=== PATIENT | female | born 1960 | race Caucasian/White ===

== ENCOUNTER 2021-03-18 01:05 | Day surgery (SDC) | payer SELFPAY ==
[2021-03-13 14:36] VITALS: BMI 26.5
--- NOTE | 2021-03-13 14:47 | PC.NURSE ---
Report to the Outpatient Waiting Room, entrance under the green pavilion located off [facility], at time 1100 on date 03/18/21. OR Time: 1300. - You will be asked a series of questions to screen for COVID 19 for your protection. - A mask is required within the hospital. - No visitors are allowed at this time. Preoperative COVID Testing Requirements: + 02/26/21 No COVID Test needed if: (proof is required; if not received patient will have Rapid Test prior to entry) - Patient has received COVID Vaccine at least 14 days prior to procedure date or - Patient has positive COVID test result within last 90 days of surgery date. COVID Test needed if above criteria is not met If not COVID vaccinated a COVID test must be conducted within 72 hours of surgery and patient is asked to isolate self from time of testing until procedure. You will go to the [facility] for your COVID testing. The [facility] is located at the corner of [address] [facility]. You will only be called if COVID results are positive and your surgeon may reschedule your elective surgery date. Patients may have clear liquids (water, carbonated beverages, clear teas, apple juice) until 3 hours prior to surgery with a maximum of 20 ounces. - No food from midnight until time of surgery Take the following medications with a SIP of water the morning of surgery: ESTRADIOL Medications to discontinue per physician: VITAMINS/SUPPLEMENTS Date to take last dose: 03/14/21 Please no make-up, nail turkish, hairspray, perfume, deodorant, or body powder the day of surgery. No jewelry (including any body piercings) or valuables the day of surgery, leave them at home. Please take a shower or bath the night before, or the morning of, surgery with an antibacterial soap. Wear comfortable, loose fitting clothing. - Jewelry must be removed prior to entering the operating room. Rings and piercings that are not removed may be cut off. - The hospital will not accept responsibility for valuables. - Please leave all valuables, including medications, at home the day of surgery. If you are going home after surgery, a licensed driver license examiner must drive you home. - NO public transportation without another adult. - We recommend that an adult stay with you for 24 hours following discharge. - We also recommend that you do not drive, make important decision, drink alcoholic beverages, or take any drugs that were not prescribed by your health care provider for at least 24 hours after your discharge time. Follow any additional instructions given to you from your surgeon. Telephone instructions given to JOHN KEYANNA and asked if any additional questions and then verbalized understanding. Patient advised to call surgeon office or pre surgery nurse liaison [phone] if any additional questions.
--- NOTE | 2021-03-16 16:36 | P.PNAN_ITS ---
Anes - Initial Pre Proc Eval Procedure: Operation Date: 03/18/21 13:00 Proposed Procedures p Right Elbow Lateral Epicondyle Debridement - Fredi Landry MD Date/Time: 03/16/21 16:36 Surgeon: Fredi Landry MD Pre Op Diagnosis: right lateral epicondylitis Patient Data Age: 60 Gender: F Height: 1.66 m Weight: 73.48 kg Allergies Allergy/AdvReac Type Severity Reaction Status Date / Time codeine AdvReac Mild depression Verified 03/18/21 11:09 Home Medications Medication Instructions Recorded Confirmed Type estradiol 1 mg tablet 1 mg PO DAILY 02/01/20 03/18/21 History ibuprofen 200 mg capsule 200 mg PO Q6H PRN 02/01/20 03/18/21 History cholecalciferol (vitamin D3) 125 mcg PO DAILY 03/13/21 03/18/21 History [Vitamin D3] multivitamin 1 tablet PO DAILY 03/13/21 03/18/21 History Patient hx anesthesia problems: none Family hx anesthesia problems: none Results Review: All pre-operative results and documents have been reviewed as part of the pre-operative evaluation. [facility] Past Medical History Medical History BMI 26.0-26.9,adult Right lateral epicondylitis Surgical History Surgical History H/O: hysterectomy Family History Family History Other Cerebrovascular accident Diabetes mellitus Heart disease Hypertension Social History Social History Smoking status: Never smoker Alcohol intake: never Substance use: never Substance use type: does not use Living arrangements: with family Additional occupation/education comments: [employer], [employer] Gender identity (if verbalized by the patient): Female Spiritual care concerns: No Anes - Eval Final PreProcedure Day of Procedure 03/16/21 16:36 Patient weight: overweight Heart: regular rate and rhythm Lungs: clear to auscultation and normal air movement Airway: Mallampati scale class II Neurological: alert and oriented Last oral intake: >/= 8 hours ASA classification: II Emergent: no Anesthetic plan: proceed Anesthesia type and monitoring: general LMA Results Review: All pre-operative results and documents have been reviewed as part of the pre-operative evaluation. Informed Consent: The patient's anesthetic plan and its attendant risks and benefits were discussed with the patient/family/POA. Questions were solicited and answers provided to the satisfaction of the patient/family/POA.
--- NOTE | 2021-03-16 16:36 | WPDANESPNB ---
Anes - Peripheral Nerve Block Date/Time: 03/16/21 16:36 I have discussed with the patient/family/POA the placement of a peripheral nerve block for post-operative pain management, including associated risks, benefits, complications, and side effects. Alternative methods of post-operative analgesia were detailed. Questions were solicited and answers provided to the satisfaction of the patient/family/POA. Time-Out: A pre-procedural Time-Out was completed immediately before starting the procedure and confirmed: Patient Identification, Site, Procedure, Patient Position and the Availability of Requisite Equipment. Clinical Indications: Acute post-operative pain management requested by the operative surgeon. Nerve Block Insertion Note Anes-nerve block: supraclavicular right Patient position: supine Skin prep: chlorhexidine Needle: 22 gauge, stimulating, insulated echogenic needle. Needle length: 80 mm Technique: ultrasound (in plane) Injectate: bupivacaine 0.5% with epi 5 mcg/ml (20cc) Observations: tolerated well Complications: none Procedure start time:: 1245 Procedure end time:: 1250
[2021-03-18] VITALS (8 sets, daily range): BP systolic 108–126; BP diastolic 50–64; PULSE 62–76; RESP 10–16; TEMP 36.1–36.8; O2SAT 93–100
[2021-03-18] MEDS: LACTATED RINGERS 1,000 ML 30 ML IV CONT (11:30)
[2021-03-18] MEDS: ACETAMINOPHEN 500 MG TABLET 1000 MG PO (11:30)
--- NOTE | 2021-03-18 12:17 | WPDHPUPDATE1 ---
History and Physical Update Update Date/Time: 03/18/21 12:17 History and Physical has been reviewed, including an updated exam of the patient. There are NO changes in the patient's condition. Risks, benefits, and alternatives have been discussed and questions answered. Patient agrees to proceed with procedure.
[2021-03-18] MEDS: KETOROLAC 15 MG/ML VIAL (*BKC) IV PUSH (12:35)
--- NOTE | 2021-03-18 13:52 | W.PM.PROC2 ---
Procedure Note - Detailed Date of Procedure 03/18/21 Pre-op Diagnosis right lateral epicondylitis Post-op Diagnosis same Procedure Performed Debridement right elbow common extensor origin at the lateral epicondyle Surgeon Fredi Landry MD Anesthesia general and regional Description of Procedure the patient was identified and proper site identified. In the preoperative holding area, the anesthesia team performed a right upper extremity block. She was then taken back to the operating room and transferred to the OR table placing her supine taking care to pad her torso and extremities. After general anesthetic induction and intubation, right upper extremity had a nonsterile tourniquet placed on the arm. The arm was then prepped and draped in the usual sterile fashion. Extremity was exsanguinated and the tourniquet was inflated to 200 millimeters of mercury remaining up for approximately 20 minutes. Longitudinal incision was made along the common extensor origin. Subcutaneous tissue is bluntly dissected down to the tendinous origin. There was a very large lateral epicondylar spur. Tendon was released from the spur and then divided longitudinally in line with the fibers of the tendon allowing for for debridement of the degenerative material from within. Prominent portion of the lateral condyle was also removed with a rongeur. The wound was irrigated with sterile saline solution. Tendon edges were reapproximated with 4-0 Monocryl. Skin edges reapproximated with three 0 V lock and tissue adhesive. Sterile dressing was applied. Tourniquet was released. Patient was awakened, extubated and taken to recovery area in stable condition. There were no known intraoperative complications. Estimated blood loss was negligible. She received perioperative antibiotics. Estimated Blood Loss 1 Tourniquet Time 20 Drains No Packing No Pathology none sent Complications No immediate complications Condition stable Disposition PACU
== END 2021-03-18 15:40 | disposition home or self-care (01) ==
PROVIDERS: PCP Internal Medicine Endocrinology, Diabetes & Metabolism; Visit Provider Orthopaedic Surgery
PROC: (CPT 24110; principal; 2021-03-18 13:00)
DX: M77.11 Lateral epicondylitis, right elbow (principal); G89.18 Other acute postprocedural pain
CPT/HCPCS: 24359; 64415; A9270; J1100; J1885; J2250; J2405; J2704; J3010; J7120

== ENCOUNTER → 2022-05-09 13:17 | Outpatient (CLI) | payer SELFPAY ==
--- NOTE | ~2022-05-09 | CT_ITS ---
EXAMINATION: CT pelvis wo con DATE: 05/09/2022 13:29 INDICATION: Sacroiliac pain TECHNIQUE: Computed tomography (CT) of the pelvis was performed without intravenous contrast. Automat ed exposure control and iterative reconstruction technique were employed. Exam dose: 569.81 mGy-cm t otal exam DLP. COMPARISON: None FINDINGS: There is a transitional first sacral vertebra. Prominent degenerative change at L5-S1 pars interarticularis defects. 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 No sacral fracture or bone destruction. No erosive change or ankylosis at the sacroiliac joints. Osteitis pubis. No pelvic fracture or bone destruction. IMPRESSION: Mild degenerative change of the sacroiliac joints. Transitional S1 Reviewed, dictated and finalized at [facility]. Reviewed, dictated and finalized at [facility].
== END ==
PROVIDERS: PCP Orthopaedic Surgery; Visit Provider Orthopaedic Surgery
DX: M24.9 Joint derangement, unspecified (principal); M53.3 Sacrococcygeal disorders, not elsewhere classified
CPT/HCPCS: 72192

== ENCOUNTER → 2022-05-28 14:13 | Outpatient (CLI) | payer SELFPAY ==
--- NOTE | ~2022-05-28 | MR_ITS ---
MRI of the lumbar spine Clinical History: Lumbar spondylosis Technique: Axial T2-weighted images, and sagittal T1-weighted, T2-weighted, and T2 fat-sat images wer e acquired. COMPARISON: 12/21/2017 Findings: There is no fracture of the lumbar spine. Minimal grade 1 retrolisthesis of L2 over L3 note d. No suspicious bone marrow signal abnormality seen. At L1-L2, there is no disc bulge or herniation. No spinal canal stenosis or neural foraminal narrowin g. At L2-L3, there is minimal disc bulge with mild facet joint hypertrophy. No spinal canal stenosis or neural foraminal narrowing. At L3-L4, there is minimal disc bulge. No spinal canal stenosis. There is minimal left neural foramin al narrowing. There is mild facet joint arthropathy. At L4-L5, there is minimal disc bulge with facet arthropathy. There is mild lateral recess stenosis, particularly on the left. There is mild right neural foraminal narrowing. At L5-S1, there is minimal disc bulge with advanced facet arthropathy. No spinal canal stenosis. Ther e is minimal bilateral neural foraminal narrowing. Paravertebral soft tissues are unremarkable. Impression: Minimal degenerative spondylosis, as above. Minimal grade 1 retrolisthesis of L2 over L3. Reviewed, dictated and finalized at location . Impression: Minimal degenerative spondylosis, as above. Minimal grade 1 retrolisthesis of L2 over L3.
== END ==
PROVIDERS: PCP Internal Medicine Endocrinology, Diabetes & Metabolism; Visit Provider Anesthesiology Pain Medicine
DX: M47.816 Spondylosis without myelopathy or radiculopathy, lumbar region (principal)
CPT/HCPCS: 72148

== ENCOUNTER 2023-12-23 09:17 | Outpatient (CLI) | payer SELFPAY ==
--- NOTE | ~2023-12-23 | MR_ITS ---
MRI of the lumbar spine Clinical History: Back pain Technique: Axial T2-weighted images, and sagittal T1-weighted, T2-weighted, and and T2 fat-sat images were acquired. COMPARISON: 05/28/2022 Findings: No acute fracture or sublocation seen. Osseous alignment unchanged from prior exam. No susp icious bone marrow signal abnormality seen. At L1-L2, there is minimal disc bulge with mild to moderate facet arthropathy. No central canal steno sis or neural foraminal narrowing. At L2-L3, there is minimal disc bulge with moderate facet arthropathy. No central canal stenosis. The re is mild bilateral neural foraminal narrowing. L3-L4, there is mild disc bulge with moderate facet arthropathy. No central canal stenosis. There is moderate bilateral neural foraminal narrowing. At L4-L5, there is minimal disc bulge with severe facet arthropathy. No central canal stenosis. There is mild to moderate right neural foraminal narrowing. Left neural foramen preserved. At L5-S1, there is no disc bulge or herniation. There is no spinal canal stenosis or neural foraminal narrowing. Paravertebral soft tissues are unremarkable. Impression: Mild to moderate degenerative spondylosis, as above. Reviewed, dictated and finalized at [facility]. [employer]GE ENGINEER Impression: Mild to moderate degenerative spondylosis, as above.
== END 2023-12-23 09:18 | disposition home or self-care (01) ==
LOC: GOSHIMG 09:18
PROVIDERS: PCP Internal Medicine Endocrinology, Diabetes & Metabolism; Visit Provider Nurse Practitioner
DX: M79.652 Pain in left thigh (principal); M47.896 Other spondylosis, lumbar region
CPT/HCPCS: 72148

== ENCOUNTER 2025-01-08 05:45 | Emergency (ER) | payer MEDICARE, SELFPAY ==
--- OUTSIDE RECORDS SUMMARY | 2025-01-08 05:48 | XMS_ITS | Clinical Summary ---
Author Organization [facility] Address [facility] [place] [address] Care Team Providers Care Vice President Of Development Name Role Phone Brent Davis MD Primary Care Provider + Allergies Active Allergy Reactions Criticality Noted Date Comments Codeine Mental status changes Low 04/02/2021 Tizanidine Shortness of breath High 12/19/2024 Medications multivitamin tabletIndication s:Vitamin Deficiency Prevention Take 1 tablet by mouth Active biotin 1 mg capsule Take by mouth Active calcium carbonate-vitami n D3 2,500 mg (1,000 mg elemental)-800 unit tablet Take by mouth Active estradioL (ESTRACE) 1 mg tablet daily 02/01/2020 Active ibuprofen 200 mg tab/cap 1 tablet/caps ule (200 mg total) 02/01/2020 Active Active Problems Problem Noted Date Diagnosed Date Sciatica of left side 12/19/2024 Positive colorectal cancer screening using Colog uard test 10/18/2024 Family history of high cholesterol 09/28/2024 Encounter for Medicare annual wellness exam 08/17 Encounters Date Type Department Care Team Description 12/21/2024 7:15 AM MEDICAL APPARATUS MODEL MAKER - 12/21/2024 11:59 PM MEDICAL APPARATUS MODEL MAKER Hospital Encounter [facility] MOB 1 DIAG IMG [address] [place] [address] Sciatica of left side Discharge Disposition: Discharge to home or self care 12/21/2024 Results Follow-Up [facility] [address] [place] [phone] Brent Davis MD XR Spine Lumbar Complete 4 Or More 12/19/2024 12:00 PM MEDICAL APPARATUS MODEL MAKER Office Visit [facility] [address] [place] [phone] Brent Davis MD Sciatica of left side (Primary Dx) 12/06/2024 Telephone [facility] [address] [place] [phone] Brent Davis MD Test Results 11/08/2024 11:25 AM CDT Anesthesia Event [address] [address] Shad Bailey MD Zueck, Jason M., IRENE 11/08/2024 11:15 AM CDT - 11/08/2024 12:00 PM CDT Surgery [address] [address] Kenneth Mann MD PhD COLON REMOVAL SNARE 11/08/2024 10:10 AM CDT - 11/08/2024 12:32 PM CDT Hospital Encounter [address] [address] Kenneth Mann MD PhD Positive colorectal cancer screening using Cologuard test Discharge Disposition: Discharge to home or self care 11/03/2024 Telephone [facility] [address] [place] [phone] Hallie Salomon, LATA GI PROCEDURE 3 DAY PRE CALL 11/01/2024 Telephone [facility] [address] [place] [phone] Hallie Salomon, LATA GI PROCEDURE 7 DAY PRE CALL 10/19/2024 Telephone [facility] [address] [place] [phone] Cheyenne Dickerson RN GI Preprocedure 10/18/2024 Telephone [facility] [address] [place] [phone] Brent Davis MD Test Results 10/14/2024 Orders Only [facility] [address] [place] [phone] Brent Davis MD from Last 3 Months Immunizations Immunization Administration Dates Next Due Influenza, Quadrivalent, Rec ombinant, Egg Free, Preservative Free, Intramuscular 01/20/2018 Tdap 02/19/2017 Surgical History Surgery Date Site/Laterality Comments MA SLING OPERATION STRESS INCONTINENCE Vaginal Sling Operation For Stress Incontinence - TOT placed on 03/20/2008 (Added by TW Conv) MA TOTAL ABDOMINAL HYSTERECT W/WO RMVL TUBE OVARY Hysterectomy - (Added by TW Conv) HYSTERECTOMY BREAST BIOPSY 03/08/2024 Left Medical History Medical History Date Comments Lyme disease Lyme disease - ( Added by TW Conv) Personal history of other di seases of the digestive system History of constipation - (A dded by TW Conv) Personal history of other di seases of the digestive system History of irritable bowel s yndrome - (Added by TW Conv) Social History Tobacco Use Types Packs/Day Years Used Date Smoking Tobacco: Never Tobacco Cessation:Counseling Given: Not Answered Alcohol Use Standard Drinks/Week Comments Never 0 (1 standard drink = 0.6 oz pur e alcohol) PHQ-2 Answer Date Recorded PHQ-2 Total Score (If total score is 3 or more points, staff should administer the PHQ-9) 0 09/28/2024 AUDIT-C Answer Date Recorded Q1: How often do you have a drink containing alcohol? Never 11/08/2024 Q2: How many drinks containi ng alcohol do you have on a typical day when you are drinking? Patient does not drink Q3: How often do you have si x or more drinks on one occasion? Never 11/08/2024 Personal Safety Answer Date Recorded Have you ever been in or are you currently in a harmful physical or emotional relationship or is someone making you feel afraid or unsafe? Denies 11/08/2024 Comments No Sex and Gender Information Value Date Recorded Sex Assigned at Not on file Legal Sex Female 12:37 AM MEDICAL APPARATUS MODEL MAKER Gender Identity Not on file Sexual Orientation Not on file Obstetrics History Para Term AB IAB SAB Ectopic Multiple Livin g Live Births 3 2 2 Date Outcome GA Total Labor Labor/2nd/3rd Weight Sex Type Anes PTL Elizabeth A1 A5 Name Clin Term Term Last Filed Vital Signs Vital Sign Reading Time Taken Comments Blood Pressure 166/80 12/19/2024 11:54 AM MEDICAL APPARATUS MODEL MAKER Pulse 65 12/19/2024 11:54 AM MEDICAL APPARATUS MODEL MAKER Temperature 36 C (96.8 F) 11/08/2024 12:02 PM CDT Respiratory Rate 12 11/08/2024 12:22 PM CDT Oxygen Saturation 98% 12/19/2024 11:54 AM MEDICAL APPARATUS MODEL MAKER Inhaled Oxygen Concentration - - Weight 81.2 kg (179 lb) 12/19/2024 11:54 AM MEDICAL APPARATUS MODEL MAKER Height 165.1 cm (5' 5) 12/19/2024 11:54 AM MEDICAL APPARATUS MODEL MAKER Body Mass Index 29.79 12/19/2024 11:54 AM MEDICAL APPARATUS MODEL MAKER Plan of Treatment Health Maintenance Due Date Last Done Comments Hepatitis C Screening 1960 Hepatitis B Screening 04/27/1977 Pneumococcal vaccine 65+ (1 of 1 - PCV) 04/27/2009 Zoster Vaccine (1 of 2) 04/27/2009 Influenza Vaccine (#1) 2024 01/20/2018 Breast Cancer Screening-Mammogram 01/05/2025 024 Depression Screening 09/28/2025 09/28/2024, 09/25/2022, 09/25/2022 Fall Risk Assessment 09/28/2025 09/28/2024 Well Visit 65+ 09/28/2025 09/28/2024, 09/16, 09/25/2022, Additional history exists Osteoporosis Screening-Bone Density Scan 01/05/2026 01/06/2024, 09/13/2019 DTaP/Tdap/Td Vaccine (2 - Td or Tdap) 02/19/2027 02/19/2017 Colon Cancer Screening-Colonoscopy 11/08/2034 11/08/2024 Colon Cancer Screening-CT Colonography Discontinued 11/08/2024 Colon Cancer Screening-DNA Stool Discontinued 11/09/19 25 Colon Cancer Screening-FIT Discontinued 11/08/2024 Colon Cancer Screening-Sigmoidoscopy Discontinued 11/08/2024 Medical Devices Implanted Type Area Internet Merchant Device Identifier Shelf Expiration Date Model / Serial / Lot [employer] Partnership Marker [employer]osp[employer] Site Top Hat Shape [employer]omark [id number] - [id number] Implanted:Qty: 1 on 03/08/2024 by Brent Maher MD at [facility] Left: Breast [employer] [id number] 08/18/2024 SMARK-PASCUAL ERO-[id number] / / [id number] Procedures Procedure Name Priority Date/Time Associated Diagnosis Comments XR SPINE LUMBAR COMPLETE 4 OR MORE VIEWS Schedule Routine, Read Routine (OP Routine) 12/21/2024 7:30 AM MEDICAL APPARATUS MODEL MAKER Sciatica of left side SURGICAL PATHOLOGY Routine 11/08/2024 11 :40 AM CDT Positive colorectal cancer screening using Cologuard test COLONOSCOPY 11/08/2024 11:26 AM CDT COLON REMOVAL SNARE Open Access 11/08/2024 1 1:24 AM CDT Positive colorectal cancer screening using Cologuard test GI - RESULT 10/14/2024 6:11 AM CDT SCREENING MAMMOGRAM BILATERAL W TUNDE Schedule Routine, Read Routine (OP Routine) 01/06/2024 8:56 AM MEDICAL APPARATUS MODEL MAKER Screening mammogram, encounter for DEXA AXIAL SKELETON BONE DENSITY 1 OR MORE SITES Schedule Routine, Read Routine (OP Routine) 01/06/2024 8:48 AM MEDICAL APPARATUS MODEL MAKER Post-menopausal from Last 3 Months or Most Recently Relevant to Health Maintenance Results * XR Spine Lumbar Complete 4 Or More (12/21/2024 7:30 AM MEDICAL APPARATUS MODEL MAKER) Anatomical Region Laterality Modality Spine N/A Computed Radiogr aphy 12/21/2024 8:03 AM MEDICAL APPARATUS MODEL MAKER Impressions 12/21/2024 8:03 AM MEDICAL APPARATUS MODEL MAKER 1. Moderate multilevel degenerative disc disease. 2. Minimal anterolisthesis of L4 on L5. Electronically signed by: Norbert Salinas M.D. Narrative 12/21/2024 8:03 AM MEDICAL APPARATUS MODEL MAKER EXAMINATION: XR SPINE LUMBAR 4 OR MORE VIEWS HISTORY: sciatica TECHNIQUE: 5 views of the lumbar spine. COMPARISON: 01/17/2014 FINDINGS: Minimal anterolisthesis of L4 on L5. There is facet arthrosis of the lumbar spine. The vertebral body heights are maintained. There is moderate multilevel disc height loss. Procedure Note Norbert Salinas MD - 12/21/2024 EXAMINATION: XR SPINE LUMBAR 4 OR MORE VIEWS HISTORY: sciatica TECHNIQUE: 5 views of the lumbar spine. COMPARISON: 01/17/2014 FINDINGS: Minimal anterolisthesis of L4 on L5. There is facet arthrosis of the lumbar spine. The vertebral body heights are maintained. There is moderate multilevel disc height loss. IMPRESSION: 1. Moderate multilevel degenerative disc disease. 2. Minimal anterolisthesis of L4 on L5. Electronically signed by: Norbert Salinas M.D. Brent Davis MD IMG XR PROCEDURES Final Result * Surgical pathology (11/08/2024 11:40 AM CDT) Tissue (Polyp(s), colon/colorectal, esophageal, gastric) 11/08/2024 11:41 AM CDT Tissue specimen (specimen) (Polyp(s), colon/colorectal, esophageal, gastric) 11/08/2024 11:49 AM CDT Narrative PATHOLOGY [facility] - 11/09/2024 10:46 AM CDT EPIC results best viewed via link to PDF [facility] [place] [address] Note to Patients: This report may contain a detailed description of human tissue sent by a health care provider to the laboratory for pathologic evaluation. The content of this report is essential for diagnosis and may provide important critical findings. This information may be unfamiliar to patients to review without a medical professional present. It is advised that the patient review this report in the presence of a health care provider who can answer questions and explain the details. SURGICAL PATHOLOGY REPORT FINAL Patient Name: ERIN MURRAY Gender: F : 1960 (Age: 64) Address: [address] [place] [phone] [facility] #: [id number] Taken:11/08/2024 Received:11/08/2024 Reported: 11/09/2024 Patient Type: [facility] Service: Gastro Location: Physician(s): Kenneth Mann M.D., Ph.D. Brent Davis M.D. Diagnosis: A. Large bowel, ascending colon polyp, biopsy - Sessile serrated adenoma/lesion(s) B. Large bowel, descending colon polyp, biopsy - Sessile serrated adenoma/lesion liyah/11/09/2024 08:46 By this signature, I attest that the above diagnosis is based upon my personal examination of the slides(and/or other material indicated in the diagnosis). Shanon Cordoba MD Report Electronically Reviewed and Signed Out By Shanon Cordoba MD 11/09/2024 10:46:27 Randa Noonan M.D. History: The patient is a 64-year-old woman presenting with positive colorectal cancer screening using Cologuard test. Operative procedure: Colon removal snare. Specimen(s) Received: A: Ascending B: Descending Gross Description: Received in two formalin jars labeled with the patient's identifiers. A. Labeled ascending and consists of multiple lawler fragment(s) of soft tissue with an aggregate measurement of 0.9 x 0.4 x 0.1 cm. Labeled A1. Jar 0. B. Labeled descending and consists of one lawler-pink fragment(s) of soft tissue measuring 0.8 cm in greatest dimension. Labeled B1. Jar 0. [facility]/11/08/2024 15:51 PA(s): Rica Cruz By this signature, I attest that the above diagnosis is based upon my personal examination of the slides(and/or other material). Addenda/Procedures The performance characteristics of some immunohistochemical stains, fluorescence in-situ hybridization tests and immunophenotyping by flow cytometry cited in this report (if any) were determined by the Surgical Pathology and Flow Cytometry Departments at [facility] as part of an ongoing quality engineer medical device program and in compliance with federally mandated regulations drawn from the Clinical Laboratory Improvement Act of 1988 (CLIA '88). Some of these tests rely on the use of analyte specific reagents and are subject to specific labeling requirements by the US Food and Drug Administration. Such diagnostic tests may only be performed in a facility that is certified by the Department of Health and Human Services as a high complexity laboratory under CLIA '88. The FDA has determined that such clearance or approval is not necessary. This test is used for clinical purposes. It should not be regarded as investigational or for research. Nevertheless, federal rules concerning the medical use of analyte specific reagents require that the following disclaimer be attached to the report: This test was developed and its performance characteristics determined by the Surgical Pathology and Flow Cytometry Departments of [facility]. It has not been cleared or approved by the U. S. Food and Drug Administration. IMAGES AND SCANNED DOCUMENTS, IF INCLUDED, ONLY VIEWABLE IN PDF VERSION OF REPORT us Kenneth Mann MD PhD LAB PATHOLOGY ORDERABLES Final Result PATHOLOGY [facility] 3rd Floor [place], [place] [phone] * Colonoscopy (11/08/2024 11:26 AM CDT) Anatomical Region Laterality Modality Other Narrative Procedure Note Kenneth Mann MD PhD - 11/08/2024 11:26 AM CDT GI ENDOSCOPY [facility] Patient Name: Erin Murray Procedure Date: 11/08/2024 11:26 AM Date of : 1960 Admit Type: Outpatient Age: 64 Gender: Female Attending MD: Kenneth Mann M.D., Room: [facility] ENDOSCOPY ROOM 8 Note Status: Finalized Procedure: Colonoscopy Indications: Last colonoscopy 10 years ago, . +Cologuard test. Referring MD: Brent Davis M.D. Providers: Kenneth Mann M.D., Ozzy Massey M.D. Medicines: Monitored Anesthesia Care Complications: No immediate complications. Estimated Blood Loss: Estimated blood loss was minimal. Procedure: Pre-Anesthesia Assessment: - Immediately prior to administration ofmedications, the patient was re-assessed for adequacy to receive sedatives. - The risks and benefits of the procedure and the sedation options and risks were discussed with the patient. All questions were answered and informed consent was obtained. The benefits, risks and alternatives of theprocedure and sedation were discussed and informed consentwas obtained. All questions were answered. Please referto the signed informed consent document in the medical record. The scope was passed under direct vision.The PC HQ [id number] endoscope was introducedthrough the anus and advanced to the terminal ileum, with identification of the appendiceal orifice and IC valve. The colonoscopy was performed without difficulty. The patient tolerated the procedurewell. The quality of the bowel preparation was adequate.The bowel preparation used was GoLYTELY via split dose instruction. Findings: The perianal and digital rectal examinations were normal. A 5 mm polyp was found in the ascending colon. The polyp was sessile. The polyp was removed with a cold snare. Resection and retrieval were complete. Verification of patient identification for the specimen was done. A 6 mm polyp was found in the descending colon. The polyp wassessile. The polyp was removed with a cold snare. Resection and retrieval were complete. A few small-mouthed diverticula were found in the sigmoid colon. The retroflexed view of the distal rectum and anal verge was normaland showed no anal or rectal abnormalities. Impression: - One 5 mm polyp in the ascending colon, removedwith a cold snare. Resected and retrieved. - One 6 mm polyp in the descending colon, removedwith a cold snare. Resected and retrieved. - Diverticulosis in the sigmoid colon. - The distal rectum and anal verge are normal on retroflexion view. Recommendation: - Await pathology results. - Repeat colonoscopy in 5 years for surveillance. Attending Participation: I was present and participated during the entire procedure, including non-iglesias portions. Electronically signed by Kenneth Mann MD Kenneth Mann M.D. 11/08/2024 12:00:43 PM . Number of Addenda: 0 Note Initiated On: 11/08/2024 11:26 AM us Kenneth Mann MD PhD ENDOSCOPY PROCEDURES Final Resu lt * GI - RESULT (10/14/2024 6:11 AM CDT) Anatomical Region Laterality Modality Other us Brent Davis MD Final Re sult * (ABNORMAL) Screening Mammogram Bilateral W [place] (01/06/2024 8:56 AM MEDICAL APPARATUS MODEL MAKER) Anatomical Region Laterality Modality Breast Bilateral Mammography Impressions 01/13/2024 9:58 AM MEDICAL APPARATUS MODEL MAKER BI-RADS ATLAS category (overall): 0 - Incomplete: Needs Additional Imaging Evaluation 1. Indeterminate left breast mass(es). Further evaluation with diagnostic left mammography and possible diagnostic left breast ultrasound is recommended. 2. No mammographic evidence of malignancy in the right breast. Routine screening mammography of the right breast is recommended in 1 year. The patient has been or will be contacted. Narrative 01/13/2024 9:58 AM MEDICAL APPARATUS MODEL MAKER Screening Mammogram Bilateral W Tunde: 01/06/24 The study was acquired using full field digital technology and interpreted from soft copy. 2D digital mammographic views, as well as 3D digital tomosynthesis were performed in the CC and MLO projections. This study was resulted using Computer-Aided Detection (CAD). CLINICAL: Screening mammogram, encounter for. No relevant medical history has been documented for this patient. No known family history of breast cancer. COMPARISONS: 12/29/2017 Breast Imaging Screening Outside Reference BREAST TISSUE: There are scattered areas of fibroglandular density. FINDINGS: There is an indeterminate mass or adjacent masses in the left breast at 2-3 o'clock, [id number] depth. Other smaller less dense circumscribed masses in both breasts are considered to be benign. There is no suspicious finding in the right breast on mammogram. 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 REFERENCE: Bone mineral density: T-Score: Normal (T-score above or = -1.0) Low bone mass (T-score between -1.0 and -2.5) replaces the previously used term osteopenia Osteoporosis (T-score = or below -2.5) Z-Score: Within the expected range for age (Z-score above -2.0) Below the expected range for age (Z-score is -2.0 or below) Please see below follow up recommendations. Medical evaluation for secondary causes of low bone mineral density may be appropriate. FRAX is a World Health Organization validated fracture risk assessment tool that calculates a person's 10 year probability of a major osteoporosis related fracture and hip fracture. According to the National Osteoporosis Foundation guidelines, postmenopausal women and men age 50 or older with low bone mass and a 10 year probability of a major osteoporosis related fracture = or greater than 20% or a 10 year probability of a hip fracture = or greater than 3% should be considered for pharmacological treatment for the prevention of osteoporosis. For further information, including treatment recommendations, please refer to the 2019 ISCD Official Positions (http://www.iscd.org) and the NOF's Clinician's Guide to Prevention and Treatment of Osteoporosis (http://www.nof.org/professionals/clinical-guidelines) THIS IS AN ELECTRONICALLY VERIFIED FINAL REPORT 01/06/2024 6:08 PM - Electronically signed by Brent Coker M.D. 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 REFERENCE: Bone mineral density: T-Score: Normal (T-score above or = -1.0) Low bone mass (T-score between -1.0 and -2.5) replaces thepreviously used term osteopenia Osteoporosis (T-score = or below -2.5) Z-Score: Within the expected range for age (Z-score above -2.0) Below the expected range for age (Z-score is -2.0 or below) Please see below follow up recommendations. Medical evaluation forsecondary causes of low bone mineral density may be appropriate. FRAX is a World Health Organization validated fracture risk assessmenttool that calculates a person's 10 year probability of a major osteoporosisrelated fracture and hip fracture. According to the National OsteoporosisFoundation guidelines, postmenopausal women and men age 50 or older with low bonemass and a 10 year probability of a major osteoporosis related fracture = or greater than 20% or a 10 year probability of a hip fracture = or greaterthan 3% should be considered for pharmacological treatment for the preventionof osteoporosis. For further information, including treatment recommendations, please referto the 2019 ISCD Official Positions (http://www.iscd.org) and the NOF's Clinician's Guide to Prevention and Treatment of Osteoporosis (http://www.nof.org/professionals/clinical-guidelines) THIS IS AN ELECTRONICALLY VERIFIED FINAL REPORT 01/06/2024 6:08 PM - Electronically signed by Brent Coker M.D. MF: GINA Report ID: [id number] Reading Location: [place] [address] Brent Davis MD IM DXA PROCEDURES Final Result from Last 3 Months or Most Recently Relevant to Health Maintenance Insurance MEDICARE MEDICARE MEDICARE Care Teams Vice President Of Development Relationship Specialty Start Date End Date Brent Davis MD PCP - General 04/22/17
--- OUTSIDE RECORDS SUMMARY | 2025-01-08 05:48 | XMS_ITS | Encounter Summary ---
Author Organization [facility] Address [address] [place] [address] Care Team Providers Care School Bus Aide Name Role Phone Brent Davis MD Primary Care Provider + Encounter Details Date Type Department Care Team (Late st Contact Info) Description 12/21/2024 Results Follow-Up [facility] [address] [place] [phone] Brent Davis MD [facility] [address] [address] XR Spine Lumbar Complete 4 Or More Social History Tobacco Use Types Packs/Day Years Used Date Smoking Tobacco: Never Alcohol Use Standard Drinks/Week Comments Never 0 [...] on file Legal Sex Female 12:37 AM HOSE TENDER Gender Identity Not on file Sexual Orientation Not on file documented as of this encounter Plan of Treatment Not on file documented as of this encounter Visit Diagnoses Not on filedocumented in this encounter Care Teams School Bus Aide Relationship Specialty Start Date End Date Brent Davis MD PCP - General 04/22/17 documented as of this encounter
[2025-01-08 05:53] VITALS: BP 161/78; PULSE 93; RESP 17; TEMP 36.3; O2SAT 96
--- NOTE | 2025-01-08 07:11 | ED.GENADULT ---
HPI - General Adult General Chief complaint: Back Pain/Injury Stated complaint: sciatica pain Time Seen by Provider: 01/08/25 06:54 History of Present Illness HPI narrative: 64-year-old female present to the emergency department for evaluation of left-sided sciatica. Patient reports pain started approximately 1 month ago and did acutely worsened on Thursday. Patient denies any falls or injuries. Patient denies any prior history of sciatica. Patient states that they shooting pain that radiates 10 fell left hip down to the level of the left calf. Patient does have some baseline neuropathy but denies any worsening any leg numbness or tingling. Patient denies any change in bowel or bladder habits. Patient denies any other significant past medical history. Related Data Home Medications ?Medication ?Instructions ?Recorded ?Confirmed ?Last Taken ?Type estradiol 1 mg tablet (Estrace) 1 mg PO DAILY 02/01/20 05/13/22 03/18/21 History cholecalciferol (vitamin D3) 125 125 mcg PO DAILY 03/13/21 05/13/22 03/14/21 History mcg (5,000 unit) tablet (Vitamin D3) multivitamin 1 tablet PO DAILY 03/13/21 05/13/22 03/14/21 History elderberry fruit 350 mg capsule mg PO 05/06/22 05/13/22 Unknown History Allergies Allergy/AdvReac Type Severity Reaction Status Date / Time codeine AdvReac Mild depression Verified 01/08/25 05:55 Review of Systems Review of Systems: All systems reviewed & are unremarkable except as noted in HPI and below PMFSH Past Medical History Medical History (Updated 01/08/25 @ 07:16 by Rob Garrett MD) Arthritis of lumbosacral spine Left lateral epicondylitis BMI 26.0-26.9,adult Surgical History Surgical History Right lateral epicondylitis Lateral epicondylar debridement March 18, 2021 H/O: hysterectomy Family History Family History Other Cerebrovascular accident Diabetes mellitus Heart disease Hypertension Social History Social History Smoking status: Never smoker Alcohol intake: never Substance use: never Substance use type: does not use Living arrangements: with family Occupation/Education: occupation Additional occupation/education comments: [employer] [facility] Gender identity (if verbalized by the patient): Female Spiritual care concerns: No Exam Narrative: APPEARANCE: Well appearing, no pain, no distress, well-nourished. HEAD: normocephalic, atraumatic. EYES: PERRLA/EOMI, conjunctivae clear. NOSE: Normal no drainage EARS:TMS clear with good light reflex. THROAT: Pharynx clear, no exudate. NECK: Supple. No adenopathy, no masses. RESPIRATORY: Airway patent, respirations nonlabored. Clear to auscultation bilaterally, no rales, rhonchi, wheezing. CARDIOVASCULAR: Regular rate and rhythm without murmurs rubs or gallops. ABDOMINAL: Soft, nontender, nondistended, normal bowel sounds MUSCULOSKELETAL: Moves all extremities. Strength/ROM intact, No edema, No calf tenderness. Tenderness to left buttock, a negative straight leg NEURO: Alert. Cranial nerves II through XII intact. Good gait. Good coordination SKIN: Warm, dry. Normal Color PSYCHIATRIC: Normal affect/mood. Course Vital Signs Vital signs: Vital Signs Temperature 97.4 F L 01/08/25 05:53 Pulse Rate 93 01/08/25 05:53 Respiratory Rate 17 01/08/25 05:53 Blood Pressure 161/78 H 01/08/25 05:53 Pulse Oximetry 96 01/08/25 05:53 Oxygen Delivery Room Air 01/08/25 05:53 Temperature 97.4 F L 01/08/25 05:53 Pulse Rate 60 01/08/25 07:30 Respiratory Rate 15 01/08/25 07:30 Blood Pressure 160/76 H 01/08/25 07:30 Pulse Oximetry 98 01/08/25 07:30 Oxygen Delivery Room Air 01/08/25 05:53 Medical Decision Making MDM Narrative Medical decision making narrative: 64-year-old female present to the emergency department for evaluation for left leg pain that she describes as a radicular pain that radiates down the left leg to the level of the calf. Patient denies any change in bowel or bladder habits. Patient will be treated as a sciatica. Patient was treated with IM Toradol, IM dexamethasone, p.o. Flexeril in p.o. Norflex. Patient will be discharged home with a Medrol Dosepak, p.o. Flexeril and p.o. Fargo. Patient was encouraged close follow-up with her primary care physician. All questions concerns were addressed patient was comfortable the plan was discharge and close follow-up Differential Diagnosis Differential Diagnosis: Hip strain, hip contusion, sciatica, back pain, cauda equina Vital Signs Vital Signs: Vital Signs Temperature 97.4 F L 01/08/25 05:53 Pulse Rate 93 01/08/25 05:53 Respiratory Rate 17 01/08/25 05:53 Blood Pressure 161/78 H 01/08/25 05:53 Pulse Oximetry 96 01/08/25 05:53 Oxygen Delivery Room Air 01/08/25 05:53 Temperature 97.4 F L 01/08/25 05:53 Pulse Rate 60 01/08/25 07:30 Respiratory Rate 15 01/08/25 07:30 Blood Pressure 160/76 H 01/08/25 07:30 Pulse Oximetry 98 01/08/25 07:30 Oxygen Delivery Room Air 01/08/25 05:53 Discharge Plan Discharge Clinical Impression: Sciatica Patient Disposition: Home Condition: Stable Instructions: Antibiotic Form, Sciatica (ED), Back Pain (ED) Additional Instructions: Med drug Dosepak as directed. Flexeril for muscle spasm. Fargo as needed for additional pain control. Zofran as needed for nausea. Have close follow-up with your primary care physician. If you have any worsening symptoms please call or return to the emergency department. Patient Language: Turkish Prescriptions: New cyclobenzaprine 10 mg tablet 10 mg PO BID PRN (Reason: muscle spasm) Qty: 14 0RF hydrocodone-acetaminophen 5-325 mg tablet 1 tablet PO Q12H PRN (Reason: pain) Qty: 14 0RF methylprednisolone [Medrol (Hadley)] 4 mg tablets,dose pack See Rx Instructions .ROUTE .COMPLEX Qty: 21 0RF Rx Instructions: for 6 days ondansetron 4 mg tablet,disintegrating 4 mg PO Q8H PRN (Reason: nausea and vomiting) Qty: 14 0RF No Action estradiol [Estrace] 1 mg tablet 1 mg PO DAILY Rx Instructions: off 1 week; repeat cycle celecoxib [Celebrex] 200 mg capsule 200 mg PO DAILY Qty: 30 1RF elderberry fruit 350 mg capsule PO multivitamin Tablet 1 tablet PO DAILY cholecalciferol (vitamin D3) [Vitamin D3] 125 mcg (5,000 unit) Tablet 125 mcg PO DAILY Follow-up/Referrals: Ryan,Brent Barger MD [Primary Care Provider, Unknown]
[2025-01-08] MEDS: CYCLOBENZAPRINE HCL 10 MG TABLET PO (07:25)
[2025-01-08] MEDS: KETOROLAC 30 MG/ML VIAL (*BKC) IM (07:25)
[2025-01-08] MEDS: HYDROcodone/acetaminophen (*CRX) 5-325 MG TABLET 1 TAB PO (07:25)
[2025-01-08] MEDS: dexAMETHasone SOD PHOS INJ 10 MG/ML 1 ML VIAL IM (07:26)
[2025-01-08 07:30] VITALS: BP 160/76; PULSE 60; RESP 15; O2SAT 98
--- OUTSIDE RECORDS SUMMARY | 2025-01-08 07:38 | XMS_ITS | Clinical Summary ---
Author Organization [facility] Address On license of [facility] [place] [address] Care Team Providers Care Mushroom Cutter Name Role Phone Brent Davis MD Primary [...] Department Care Team Description 12/21/2024 7:15 AM IMMUNOLOGIST - 12/21/2024 11:59 PM IMMUNOLOGIST Hospital Encounter [facility] MOB 1 DIAG IMG [address] [place] [address] Sciatica of left side Discharge Disposition: Discharge to home or self care 12/21/2024 Results Follow-Up [facility] [address] [place] [phone] Brent Davis MD XR Spine Lumbar Complete 4 Or More 12/19/2024 12:00 PM IMMUNOLOGIST Office Visit [facility] [address] [place] [phone] Brent Davis MD Sciatica of left side (Primary Dx) 12/06/2024 Telephone [facility] [address] [place] [phone] Brent Davis MD Test Results 11/08/2024 11:25 AM CDT Anesthesia Event [address] [address] Shad Bailey MD Zueck, Jason M., IRENE 11/08/2024 11:15 AM CDT - 11/08/2024 12:00 PM CDT Surgery [address] [address] Kenneth Mann MD PhD COLON REMOVAL SNARE 11/08/2024 10:10 AM CDT - 11/08/2024 12:32 PM CDT Hospital Encounter [address] [address] Kenneth Mann MD PhD Positive colorectal cancer screening using Cologuard test Discharge Disposition: Discharge to home or self care 11/03/2024 Telephone [facility] [address] [place] [phone] Hallie Salomon, LATA GI PROCEDURE 3 DAY PRE CALL 11/01/2024 Telephone [facility] [address] [place] [phone] Hallie Salomon, LATA GI PROCEDURE 7 DAY PRE CALL 10/19/2024 Telephone [facility] [address] [place] [phone] Cheyenne Dickerson RN GI Preprocedure 10/18/2024 Telephone [facility] [address] [place] [phone] Brent Davis MD Test Results 10/14/2024 Orders Only [facility] [address] [place] [phone] Brent Davis MD from Last 3 Months Immunizations Immunization Administration Dates Next Due Influenza, Quadrivalent, Rec ombinant, Egg Free, Preservative Free, Intramuscular 01/20/2018 Tdap 02/19/2017 Surgical History Surgery Date Site/Laterality Comments [place] SLING OPERATION STRESS INCONTINENCE Vaginal Sling Operation For Stress Incontinence - TOT placed on 03/20/2008 (Added by TW Conv) [place] TOTAL ABDOMINAL HYSTERECT W/WO RMVL TUBE OVARY [...] on file Legal Sex Female 12:37 AM IMMUNOLOGIST Gender Identity Not on file Sexual Orientation Not on file Obstetrics History Para Term AB IAB SAB Ectopic Multiple Livin g Live Births 3 2 2 Date Outcome GA Total Labor Labor/2nd/3rd Weight Sex Type Anes PTL Elizabeth A1 A5 Name Clin Term Term Last Filed Vital Signs Vital Sign Reading Time Taken Comments Blood Pressure 166/80 12/19/2024 11:54 AM IMMUNOLOGIST Pulse 65 12/19/2024 11:54 AM IMMUNOLOGIST Temperature 36 C (96.8 F) 11/08/2024 12:02 PM CDT Respiratory Rate 12 11/08/2024 12:22 PM CDT Oxygen Saturation 98% 12/19/2024 11:54 AM IMMUNOLOGIST Inhaled Oxygen Concentration - - Weight 81.2 kg (179 lb) 12/19/2024 11:54 AM IMMUNOLOGIST Height 165.1 cm (5' 5) 12/19/2024 11:54 AM IMMUNOLOGIST Body Mass Index 29.79 12/19/2024 11:54 AM IMMUNOLOGIST Plan of Treatment Health Maintenance Due Date [...] Discontinued 11/08/2024 Medical Devices Implanted Type Area Agents' Records Clerk Device Identifier Shelf Expiration Date Model / Serial / Lot [employer] Partnership Marker Biospy Site Top Hat Shape [employer] [id number] - [id number] Implanted:Qty: 1 on 03/08/2024 by Brent Maher MD at [facility] Left: Breast [employer] [id number] 08/18/2024 SMARK-PASCUAL ERO-[id number] / / [id number] Procedures Procedure Name Priority Date/Time Associated Diagnosis Comments XR SPINE LUMBAR COMPLETE 4 OR MORE VIEWS Schedule Routine, Read Routine (OP Routine) 12/21/2024 7:30 AM IMMUNOLOGIST Sciatica of left side SURGICAL PATHOLOGY Routine 11/08/2024 11 :40 AM CDT Positive colorectal cancer screening using Cologuard test COLONOSCOPY 11/08/2024 11:26 AM CDT COLON REMOVAL SNARE Open Access 11/08/2024 1 1:24 AM CDT Positive colorectal cancer screening using Cologuard test GI - RESULT 10/14/2024 6:11 AM CDT SCREENING MAMMOGRAM BILATERAL W TUNDE Schedule Routine, Read Routine (OP Routine) 01/06/2024 8:56 AM IMMUNOLOGIST Screening mammogram, encounter for DEXA AXIAL SKELETON BONE DENSITY 1 OR MORE SITES Schedule Routine, Read Routine (OP Routine) 01/06/2024 8:48 AM IMMUNOLOGIST Post-menopausal from Last 3 Months or Most Recently Relevant to Health Maintenance Results * XR Spine Lumbar Complete 4 Or More (12/21/2024 7:30 AM IMMUNOLOGIST) Anatomical Region Laterality Modality Spine N/A Computed Radiogr aphy 12/21/2024 8:03 AM IMMUNOLOGIST Impressions 12/21/2024 8:03 AM IMMUNOLOGIST 1. Moderate multilevel degenerative disc disease. 2. Minimal anterolisthesis of L4 on L5. Electronically signed by: Norbert Salinas M.D. Narrative 12/21/2024 8:03 AM IMMUNOLOGIST EXAMINATION: XR SPINE LUMBAR 4 OR MORE [...] gastric) 11/08/2024 11:49 AM CDT Narrative PATHOLOGY [facility] - 11/09/2024 10:46 AM CDT EPIC results best viewed via link to PDF [facility] [place] [address] Note to Patients: This report may contain [...] Gender: F : 1960 (Age: 64) Address: [address] [place] [phone] [facility] #: [id number] Taken:11/08/2024 Received:11/08/2024 Reported: 11/09/2024 Patient Type: [facility] Service: Gastro Location: Physician(s): Kenneth Mann M.D., [...] in greatest dimension. Labeled B1. Jar 0. [facility]/11/08/2024 15:51 PA(s): Rica Cruz By this signature, I attest that the above diagnosis is based upon my personal examination of the slides(and/or other material). Addenda/Procedures The performance characteristics of some immunohistochemical stains, fluorescence in-situ hybridization tests and immunophenotyping by flow cytometry cited in this report (if any) were determined by the Surgical Pathology and Flow Cytometry Departments at [facility] as part of an ongoing assistant quality manager program and in compliance with federally mandated [...] Surgical Pathology and Flow Cytometry Departments of [facility]. It has not been cleared or approved by the U. S. Food and Drug Administration. IMAGES AND SCANNED DOCUMENTS, IF INCLUDED, ONLY VIEWABLE IN PDF VERSION OF REPORT us Kenneth Mann MD PhD LAB PATHOLOGY ORDERABLES Final Result PATHOLOGY [facility] 3rd Floor [place], [place] [phone] * Colonoscopy (11/08/2024 11:26 AM CDT) Anatomical Region Laterality Modality Other Narrative Procedure Note Kenneth Mann MD PhD - 11/08/2024 11:26 AM CDT GI ENDOSCOPY [facility] Patient Name: Erin Murray Procedure Date: 11/08/2024 11:26 AM Date of : 1960 Admit Type: Outpatient Age: 64 Gender: Female Attending MD: Kenneth Mann M.D., Room: [facility] ENDOSCOPY ROOM 8 Note Status: Finalized Procedure: [...] passed under direct vision.The [employer] [id number] endoscope was introducedthrough the anus and advanced [...] CDT) Anatomical Region Laterality Modality Other us Brnet Davis MD Final Re sult * (ABNORMAL) Screening Mammogram Bilateral W [place] (01/06/2024 8:56 AM IMMUNOLOGIST) Anatomical Region Laterality Modality Breast Bilateral Mammography Impressions 01/13/2024 9:58 AM IMMUNOLOGIST BI-RADS ATLAS category (overall): 0 - Incomplete: [...] will be contacted. Narrative 01/13/2024 9:58 AM IMMUNOLOGIST Screening Mammogram Bilateral W Tunde: 01/06/24 The [...] in the left breast at 2-3 o'clock, [id number] depth. Other smaller less dense circumscribed masses in both breasts are considered to be benign. There is no suspicious finding in the right breast on mammogram. Brent Davis MD IMG MAMMO PROCEDURES Fin al Result * Dexa Axial Skeleton Bone Density 1 or 2 Site (01/06/2024 8:48 AM IMMUNOLOGIST) Anatomical Region Laterality Modality Body N/A Mammography 01/06/2024 6:06 PM IMMUNOLOGIST Narrative 01/06/2024 6:08 PM IMMUNOLOGIST EXAM DESCRIPTION: DEXA AXIAL SKELETON BONE DENSITY 1 OR MORE SITES REASON FOR STUDY: 63 y/o year old F with given history of: post-menopausal symptoms Agents' Records Clerk/Model: Cirrascale A (S/N [id number]) CLINICAL INFORMATION: Current height: 65.5 inches Maximum [...] Brent Coker M.D. MF: GINA Report ID: [id number] Reading Location: [address] Note Brent Coker MD - 01/06/2024 EXAM DESCRIPTION: DEXA AXIAL SKELETON BONE DENSITY 1 OR MORE SITES REASON FOR STUDY: 63 y/o year old F with given history of: post-menopausal symptoms Agents' Records Clerk/Model: Cirrascale A (S/N [id number]) CLINICAL INFORMATION: Current height: 65.5 inches Maximum [...] Brent Coker M.D. MF: GINA Report ID: [id number] Reading Location: [place] [address] Brent Davis MD IM DXA PROCEDURES Final Result from Last 3 Months or Most Recently Relevant to Health Maintenance Insurance MEDICARE MEDICARE MEDICARE Care Teams Mushroom Cutter Relationship Specialty Start Date End Date Brent Davis MD PCP - General 04/22/17
--- OUTSIDE RECORDS SUMMARY | 2025-01-08 07:38 | XMS_ITS | Encounter Summary ---
Author Organization [facility] Address [address] [place] [address] Care Team Providers Care Ship Fastener Name Role Phone Brent Davis MD Primary Care Provider + Encounter Details Date Type Department Care Team (Late st Contact Info) Description 12/21/2024 Results Follow-Up [facility] [address] [place] [phone] Brent Davis MD [facility] [address] [address] XR Spine Lumbar Complete 4 [...] on file Legal Sex Female 12:37 AM WRAPPER SORTER Gender Identity Not on file Sexual Orientation Not on file documented as of this encounter Plan of Treatment Not on file documented as of this encounter Visit Diagnoses Not on filedocumented in this encounter Care Teams Ship Fastener Relationship Specialty Start Date End Date Brent Davis MD PCP - General 04/22/17 documented as of this encounter
== END 2025-01-08 07:44 | disposition home or self-care (01) ==
LOC: ANHED 07:35
PROVIDERS: Emergency Provider Emergency Medicine; PCP Internal Medicine Endocrinology, Diabetes & Metabolism
DX: M54.32 Sciatica, left side (principal)
CPT/HCPCS: 96372; 99284; A9270; J1100; J1885